=== PATIENT | female | born 1980 | race American Indian/Alaskan Native ===

== ENCOUNTER 2021-07-01 05:59 | Observation (INO) | payer MEDICAID ==
--- NOTE | 2021-06-27 11:57 | History and Physical Report ---
History of Present Illness History of present illness: 40 yo with chronic pelvic pain L>R, dyspareunia and irreg menses. Multiple BC txs did not help. U/S in mar was WNL including a thin EM stripe of 0.36cm. PT has also had a dx of PCOS. Past History Past Medical History: diabetes (She notes her recent Hgn A1c is 6.7), other (PCOS) Past Surgical History: other (LEEP) [employer] History: herpes, trichomonas Social history: no significant social history Medications and Allergies Allergies Allergy/AdvReac Type Severity Reaction Status Date / Time Penicillins Allergy Hives Verified 06/23/21 10:42 Home Medications Medication Instructions Recorded Confirmed Last Taken Type Semaglutide [Ozempic] 1 mg SQ QWEEK 05/11/21 06/23/21 Unknown History metFORMIN [Glucophage] 500 mg PO BID 05/11/21 06/23/21 Unknown History Oxycodone HCl/Acetaminophen 1 each PO Q6HR PRN 06/23/21 06/23/21 Unknown History [Percocet 10/325 mg] Review of Systems All systems: negative (except HPI) - Physical Exam Breasts: Cardiovascular: Regular rate, Normal S1, Normal S2 Lungs: Positive: Clear to auscultation, Normal air movement Abdomen: Positive: normal appearance, soft. Negative: distention, tenderness Vulva: both: normal Vagina: Positive: normal moisture. Negative: discharge Cervix: Negative: lesion, discharge Uterus: Positive: normal size, normal contour, other (uterosacral tend L>R) Adnexa: both: normal Extremities: Results All other labs normal. Assessment and Plan - Patient Problems (1) Pelvic pain Status: Acute Plan to address problem: PT will be presenting on 07/01/21 with a RAH, B/L salpingectomy and possible excision of endometriosis. Pt fully consented for surgery. R/B/A d/w pt. She understands these and agrees to proceed with surgery. All questions answered.
[2021-06-29 09:34] LABS: Basophils % (Auto) 0.4 % (0.0-1.8); Eosinophils % (Auto) 1.3 % (0.0-4.3); Hematocrit 39.2 % (30.3-42.9); Hemoglobin 12.8 gm/dl (10.1-14.3); Lymphocytes # (Auto) 1.4 K/mm3 (1.2-5.4); Lymphocytes % (Auto) 38.3 % (13.4-35.0); Mean Corpuscular HGB Conc 33 % (30-34); Mean Corpuscular Volume 85 fl (79-97); Monocytes # (Auto) 0.3 K/mm3 (0.0-0.8); Monocytes % (Auto) 7.6 % (0.0-7.3); Platelet Count 398 K/mm3 (140-440); Red Blood Count 4.63 M/mm3 (3.65-5.03); Red Cell Distribution Width 13.5 % (13.2-15.2)
[2021-06-29 09:44] LABS: BUN/Creatinine Ratio 9; Blood Urea Nitrogen 10 mg/dL (7-17); Calcium 9.2 mg/dL (8.4-10.2); Hemolysis Index 2
[2021-07-01] MEDS ORDERED: ROCURONIUM 50 MG/5 ML INJ IV ONE ×2 (07:12→08:51)
[2021-07-01] MEDS ORDERED: LIDOCAINE MPF (2%) 20 MG/1 ML VIAL 5 ML ONE (07:12)
[2021-07-01] MEDS ORDERED: MIDAZOLAM 2 MG/2 ML INJ ONE ×2 (07:12→07:30)
[2021-07-01] MEDS ORDERED: propofoL 200 MG/20 ML VIAL IV ONE (07:12)
[2021-07-01] MEDS ORDERED: fentaNYL 100 MCG/2 ML INJ ONE ×3 (07:12→09:08)
[2021-07-01] MEDS ORDERED: ONDANSETRON 4 MG/2 ML INJ ONE (07:12)
[2021-07-01] MEDS ORDERED: BUPIVACAINE/PF (0.5%) 5 MG/1 ML 30 ML VIAL INFILTRATI ONE (07:17)
[2021-07-01] MEDS ORDERED: NEOMY 40 MG/POLYMYXIN B 200,000 UNITS/ML (GU) AMPULE IR ONE ×2 (07:18→08:35)
[2021-07-01] MEDS ORDERED: CELECOXIB 200 MG CAP ONE (07:29)
[2021-07-01] MEDS ORDERED: MAGNESIUM OXIDE 400 MG TAB PO ONE (07:29)
[2021-07-01] MEDS ORDERED: ACETAMINOPHEN 500 MG TAB ONE (07:29)
--- NOTE | 2021-07-01 07:30 | Anesthesia Consultation ---
Anesthesia Consult and Med Hx - Airway Anesthetic Teeth Evaluation: Good ROM Head & Neck: Adequate Mental/Hyoid Distance: Adequate Mallampati Class: Class II Intubation Access Assessment: Probably Good - Pulmonary Exam CTA: Yes - Cardiac Exam Cardiac Exam: RRR - Pre-Operative Health Status ASA Pre-Surgery Classification: ASA2 Proposed Anesthetic Plan: General Nerve Block: TAP - Pulmonary Hx Smoking: No Hx Asthma: No Hx Sleep Apnea: No - Cardiovascular System Hx Hypertension: No - Central Nervous System Hx Neuromuscular Disorder: No Hx Back Pain: Yes (BULGING DISK IN BACK) Hx Psychiatric Problems: No - Gastrointestinal Hx Gastroesophageal Reflux Disease: No - Endocrine Hx Renal Disease: No Hx Liver Disease: No Hx Non-Insulin Dependent Diabetes: Yes Hx Thyroid Disease: No - Hematic Hx Sickle Cell Disease: No - Other Systems Hx Alcohol Use: No Hx Substance Use: No Hx Cancer: No
--- NOTE | 2021-07-01 07:31 | Anesthesia Day of Surgery ---
Anesthesia Day of Surgery - Day of Surgery Patient Examined: Yes Patient H&P Reviewed: Yes Patient is NPO: Yes
[2021-07-01] MEDS ORDERED: BUPIVACAINE/PF (0.25%) 2.5 MG/ML 30 ML VIAL INFILTRATI ONE (07:33)
[2021-07-01] MEDS ORDERED: dexAMETHasone 4 MG/ML VIAL ONE (07:33)
[2021-07-01] MEDS ORDERED: SCOPOLAMINE TRANSDERMAL PATCH 72 HR TD ONE (07:34)
[2021-07-01] MEDS ORDERED: LIDOCAINE (1%) 10 MG/1 ML VIAL 20 ML MDV ONE (07:43)
[2021-07-01] MEDS ORDERED: CELECOXIB 200 MG CAP PO NR (08:00)
[2021-07-01] MEDS ORDERED: SCOPOLAMINE TRANSDERMAL PATCH 72 HR TD NR (08:00)
[2021-07-01] MEDS ORDERED: LACTATED RINGERS 1,000 ML IV SCH (08:00)
[2021-07-01] MEDS ORDERED: GENTAMICIN 340 MG in SODIUM CHLORIDE 0.9% 100 ML IV SCH (08:00)
[2021-07-01] MEDS ORDERED: MIDAZOLAM 2 MG/2 ML INJ IV SCH (08:00)
[2021-07-01] MEDS ORDERED: GENTAMICIN/NS 80 MG/100 ML 100 ML IV SCH (08:00)
[2021-07-01] MEDS ORDERED: fentaNYL 100 MCG/2 ML INJ IV SCH (08:00)
[2021-07-01] MEDS ORDERED: ACETAMINOPHEN 500 MG TAB PO SCH (08:00)
[2021-07-01] MEDS ORDERED: MAGNESIUM OXIDE 400 MG TAB PO SCH (08:30)
[2021-07-01] MEDS ORDERED: SODIUM CHLORIDE 0.9% IRRIG SOLN 2000 ML IR ONE (08:35)
[2021-07-01] MEDS ORDERED: SODIUM CHLORIDE 0.9% IRR 1,500 ML BOTTLE IR ONE ×2 (08:35)
[2021-07-01] MEDS ORDERED: PHENYLEPHRINE/NS 1,000 MCG/10 ML SYRINGE (OR USE) IV ONE (09:02)
[2021-07-01] MEDS ORDERED: WATER FOR IRRIG STERILE 1,500 ML BOTTLE IR ONE (09:54)
[2021-07-01] MEDS ORDERED: KETOROLAC 30 MG/1 ML INJ ONE (10:28)
[2021-07-01] MEDS ORDERED: GLYCOPYRROLATE 0.4 MG/2 ML INJ ONE (10:28)
[2021-07-01] MEDS ORDERED: NEOSTIGMINE 10MG/10 ML INJ MDV ONE (10:28)
--- NOTE | 2021-07-01 10:54 | Post Operative Note ---
Date of procedure: 07/01/21 Pre-op diagnosis: chronic pelvic pain Post-op diagnosis: same Findings: Patient's abdominal survey was within normal limits except for some mild scarring from the bowel to the right lower quadrant pelvic sidewall. In the pelvis, patient had normal size uterus although it was slightly globular. Normal tubes and ovaries. Patient had some scarring from the lower uterine segment to the anterior peritoneal wall on the left side. The posterior cul-de-sac did not show any significant areas concerning for endometriosis. No scarring in the posterior cul-de-sac was noted and no specific endometriotic lesions were noted. Procedure: Procedure: Robotic assisted hysterectomy and bilateral salpingectomy. Indication: Patient is a 41-year-old with chronic pelvic pain which was bilateral but worse on the left. Multiple medical treatments have not helped. As result patient is here for this procedure. Procedure: Patient was taken to the operating room and prepped and draped in the usual fashion. Attention was first turned vaginally for placement of the V care cup uterine manipulator. This was done in the usual fashion including anchoring stitches at 12:00 and 6:00 of the cervical stroma with 0 Vicryl. The large V care cup was chosen and the manipulator was placed successfully and without difficulty. Attention was now turned abdominally. In the left upper quadrant about 2 fingerbreadths inferior to the costal margin in the midclavicular line, an 8 mm incision was made. The 8 mm trocar was successfully placed and the placement was confirmed with the camera. Attention was now turned to the placement of the 3 robotic trocars. The 2 lower quadrant ones were about 2 cm superior and medial to the ASIS on each side. These were 8 mm ports. They were placed under direct visualization with without difficulty. The 12 mm umbilical trocar site was also placed under direct visualization successfully and without difficulty in her old cholecystectomy scar 1cm above the umbilicus. At this point the patient was placed in steep Trendelenburg. The robot was docked to the trochars. At this point I broke scrub and proceeded to the da Phuc console. First the pelvis was assessed and findings noted above. Good ureteral peristalsis was noted bilaterally both at the beginning of the case and at the end of the case. Attention was first turned to the above-noted areas of scarring. These were lysed using EndoShears. Good hemostasis noted after. Then, attention was turned to the left adnexa where the fallopian tube was resected from its attachments using the robotic vessel sealer. This dissection was carried to the round ligament. The ovarian ligament was also clamped cauterized and resected with the vessel sealer. The round ligament was also clamped cauterized and cut with the vessel sealer. Good hemostasis was noted. This was then done in the exact same fashion on the right side with equal success and good hemostasis. At this point attention was turned the bladder flap which was created using EndoShears. Good hemostasis noted. The anterior colpotomy ring indentation was then identified from the V care cup. Colpotomy incision was made until the green Vcare cup was visualized. This incision was then extended bilaterally. Attention was then turned posteriorly where the posterior colpotomy ring indentation was identified and the colpotomy incision was made. The colpotomy incision posteriorly was then extended bilaterally. The posterior peritoneal flap was created at this point bilaterally. Good hemostasis noted. At this point attention was turned to the the uterine vasculature which was clamped cauterized and cut using the vessel sealer on both sides. After this was completed the colpotomy was completed at the 3:00 and 9:00 positions. At this point the colpotomy was completed 360 degrees. At this point the uterus and tubes were successfully removed vaginally without difficulty. Attention was turned to closure of the vaginal cuff which was done using 0 V-Loc in a running fashion. Vaginal cuff was closed successfully and without difficulty. At this point the pelvis was well irrigated. The abdomen was desufflated and good hemostasis was noted. Abdomen was reinsufflated. Surgicel powder was then applied to all the areas of dissection. At this point the robot was undocked from the trochars. I scrubbed back in and first inspected the vaginal cuff both visually and with palpation. Good hemostasis noted and good integrity of the cuff was noted. Laparoscopically good hemostasis still noted throughout. The 12 mm trocar was removed and that site was closed using the Jose Nuñez device and a 0 Vicryl. At this point the abdomen was fully desufflated. The other 3 trochars were removed and those trocar sites were closed using 4-0 Vicryl in a subcuticular fashion as well as the 12 mm site. The procedure was concluded at this point. Patient tolerated the procedure well. All instrument lap counts were correct. Patient taken to the recovery room in stable condition. Anesthesia: OWEN Surgeon: AMARI DRAPER Slasher Tender: ALVINO LANE Estimated blood loss: other (75 cc) Pathology: list (uterus, tubes) Specimen disposition: to lab Condition: stable Disposition: PACU
[2021-07-01] MEDS ORDERED: ACETAMINOPHEN 325 MG TAB PO PRN (11:00)
[2021-07-01] MEDS ORDERED: MAGNESIUM HYDROXIDE (MOM) ORAL LIQD UDC PO PRN (12:00)
[2021-07-01] MEDS ORDERED: IBUPROFEN 800 MG TAB PO PRN (12:30)
[2021-07-01] MEDS ORDERED: HYDROmorphone 1 MG/1 ML INJ IV SCH (13:00)
[2021-07-01] MEDS ORDERED: HYDROmorphone 2 MG/1 ML INJ IV SCH (13:00)
[2021-07-01] MEDS ORDERED: HYDROmorphone 1 MG/1 ML INJ ONE (13:06)
[2021-07-01] MEDS ORDERED: ONDANSETRON 4 MG ODT TAB PO PRN (14:00)
[2021-07-01] MEDS: oxyCODONE /ACETAMINOPHEN 5-325MG TAB PO PRN (15:59)
--- NOTE | 2021-07-01 17:25 | Post Anesthesia Evaluation ---
- Post Anesthesia Evaluation Patient Participated: Yes Airway Patent: Yes Stable Respiratory Function: Yes Nausea/Vomiting: No Temp > 96.8F: Yes Pain Manageable: Yes Adequeate Hydration: Yes Anesthesia Complications: No Block Receding Appropriately: Yes Patient on Ventilator: No
[2021-07-01] MEDS: metFORMIN 500 MG TAB PO SCH (18:33)
[2021-07-02] MEDS: oxyCODONE /ACETAMINOPHEN 5-325MG TAB PO PRN ×2 (00:02→10:37)
[2021-07-02 06:00] LABS: Hemoglobin 12.3 gm/dl (10.1-14.3)
[2021-07-02] MEDS: metFORMIN 500 MG TAB PO SCH (08:45)
--- NOTE | 2021-07-02 09:44 | Progress Note ---
Subjective - Subjective Date of service: 07/02/21 Interval history: DC home PE: incision c/d/i postop instructions reviewed Chino Bryan MD Patient reports: appetite normal, voiding normally, pain well controlled, flatus, ambulating normally Objective - Vital Signs Latest vital signs: Vital Signs Temp Pulse Resp BP Pulse Ox 07/02/21 09:25 97 07/02/21 04:30 98.5 F 103 H 18 117/63 97 07/02/21 00:40 99.1 F 105 H 18 120/72 96 07/01/21 21:06 99.2 F 114 H 18 134/70 86 07/01/21 20:50 96 07/01/21 13:57 96 07/01/21 13:40 97.7 F 109 H 18 143/87 96 07/01/21 13:39 97.7 F 107 H 18 143/87 96 07/01/21 13:25 97.8 F 93 H 15 135/74 98 07/01/21 13:10 97.9 F 92 H 15 129/81 99 07/01/21 12:55 97.0 F L 93 H 14 134/78 100 07/01/21 12:40 96.8 F L 92 H 13 134/79 100 07/01/21 12:25 96.8 F L 93 H 14 126/82 100 07/01/21 12:10 96.7 F L 96 H 16 133/82 100 07/01/21 11:55 96.6 F L 94 H 18 131/76 100 07/01/21 11:40 96.7 F L 96 H 20 126/74 100 07/01/21 11:25 96.7 F L 100 H 20 134/81 100 07/01/21 11:20 103 H 20 134/79 100 07/01/21 11:15 103 H 19 118/76 99 07/01/21 11:11 96.6 F L 104 H 17 130/80 99 Intake and Output 07/01/21 07/02/21 07/02/21 23:59 07:59 15:59 Intake Total 500 Output Total 1300 550 Balance -1300 -50 Intake: Oral 200 Intake, Free Water 300 Output: Urine 1300 550 Indwelling Catheter 1300 Uretheral (Murphy) 550 Other: Total, Intake Amount 200 Total, Output Amount 400 Voiding Method Indwelling Catheter Toilet - Labs Labs: Abnormal lab results 07/01/21 07/01/21 07/01/21 Range/Units 11:19 13:14 15:32 POC Glucose 161 H 190 H 170 H (70-105) mg/dL 07/01/21 Range/Units 23:23 POC Glucose 132 H (70-105) mg/dL
--- NOTE | 2021-07-02 09:45 | Discharge Summary ---
Providers - Providers Date of Admission: 07/01/21 10:39 Date of discharge: 07/02/21 Attending physician: AMARI DRAPER Hospitalization Reason for admission: other (robotic hysterectomy) Condition at discharge: Stable Disposition: 01 HOME / SELF CARE / HOMELESS Plan - Discharge Medications Prescriptions: Ibuprofen [Motrin 800 MG tab] 800 mg PO Q8H PRN #30 tablet PRN Reason: Pain, Moderate (4-6) oxyCODONE /ACETAMINOPHEN [Percocet 5/325 mg] 1 tab PO Q6H PRN #30 tablet PRN Reason: Pain, Moderate (4-6) - Provider Discharge Summary Additional instructions: [] Smoking cessation referral if applicable(refer to patient education folder for contact #) [] Refer to [facility]'s [facility] Booklet Call your doctor immediately for: * Fever > 100.5 * Heavy vaginal bleeding ( >1 pad per hour) * Severe persistent headache * Shortness of breath * Reddened, hot, painful area to leg or breast * Drainage or odor from incision. * Keep incision clean and dry at all times and follow doctor's instructions regarding bathing/showering - Follow up plan Follow up: AMARI DRAPER MD [Staff Physician] - 14 Days
[2021-07-02 13:00] VITALS: BP 98/70
== END 2021-07-02 11:40 | disposition home or self-care (01) ==
LOC: OR 05:59 → OB 10:39
PROVIDERS: ADMIT Obstetrics & Gynecology; ATTEND Obstetrics & Gynecology
DX: N94.10 Unspecified dyspareunia (principal); Z20.822 Contact with and (suspected) exposure to COVID-19; N92.6 Irregular menstruation, unspecified; E11.9 Type 2 diabetes mellitus without complications; R10.2 Pelvic and perineal pain; Z90.710 Acquired absence of both cervix and uterus; Z79.899 Other long term (current) drug therapy; Z98.890 Other specified postprocedural states; Z79.84 Long term (current) use of oral hypoglycemic drugs
CPT/HCPCS: 36415; 58552; 64450; 64488; 80048; 82962; 84703; 85014; 85018; 85025; 86850; 86900; 86901; 88307; G0378; J1100; J1170; J1580; J1815; J1885; J2250; J2370; J2405; J2704; J2710; J3010; J3490; J7502; S2900; U0003